=== PATIENT | female | born 1930 | race Caucasian/White ===

== ENCOUNTER 2017-01-08 11:07 | Emergency (ER) | payer OTHER ==
[~2017-01-08] VITALS: Ht 165.1 cm; Wt 58.1 kg
[~2017-01-08 11:07] MED LIST: ADVAIR 250/501 DISK IH; AMBIEN5 MG PO; ANTARA130 MG PO; ASPIR 8181 M1 PO; ASPIRIN81 M1 PO; ATENOLOL100 MG PO; CELECOXIB200 MG PO; CELEXA10 MG PO; CELEXA20 MG PO; CHILDREN'S ASPI81 M1 PO; CIPRO; CITALOPRAM HBR10 MG PO; COLACE100 MG PO; CYANOCOBALAM1000 MCG PO; DESYREL100 MG PO; DESYREL12.5 MG PO; DETROL LA4 MG PO; DOCUSATE SODIU100 MG PO; DUONEB 2.5-0.5 M3 ML AEROSOL; FEOSOL325 MG PO; FOSAMAX70 MG PO; FUROSEMIDE20 MG PO; HYDROCODON-ACE1 EAC7 PO; KEFLEX250 MG PO; LASIX20 MG PO; LEVOFLOXACIN500 MG PO; LEVOTHROID88 MCG PO; LEVOTHYROXINE125 MCG PO; LEVOTHYROXINE150 MCG PO; LEVOTHYROXINE88 MCG PO; LISINOPRIL20 MG PO; LOVENOX40 MG/0.4 SC; Lovenox SC; NORVASC10 MG PO; NORVASC5 MG PO; PANTOPRAZOLE SO40 MG PO; PREDNISONE20 MG PO; Percocet 5/325,Endoc PO; REMERON15 M2 PO; SPIRIVA1 INHALATI IH; ST. JOSEPH ASPI81 MG PO; SYNTHROID175 MCG PO; TENORMIN100 MG PO; TENORMIN50 MG PO; TRAZODONE HCL50 MG PO; TYLENOL REGULA325 MG PO; VITAMIN D1000 UNIT PO; VITAMIN D5000 UNIT PO; Vitamin D, Drisdol PO; ZETIA10 MG PO; Zetia PO; aspirin PO
[2017-01-08 12:03] LABS: ADD MIUA? YES; BILIRUBIN NEGATIVE; BLOOD SMALL; COLOR YELLOW ((YELLOW)); GLUCOSE (STRIP) NEGATIVE; KETONES NEGATIVE; LEUKOCYTES NEGATIVE; NITRITE NEGATIVE; PROTEIN (STRIP) NEGATIVE; SPECIFIC GRAVITY 1.009 (1.000-1.030); UROBILINOGEN 0.2 MG/DL (0.2-1.0)
[2017-01-08 12:22] LABS: EOSINOPHIL (%) 1.4 % (0-5); EOSINOPHIL COUNT 0.1 K/uL (0-0.3); HEMATOCRIT 35.4 % (36.0-46.0); IMMATURE GRANULOCYTE (%) 0.5 % (0.0-0.7); IMMATURE GRANULOCYTE COUNT 0.1 K/uL; INSTRUMENT ABS NEUTROPHIL CT 8.3 K/uL; LYMPHOCYTE COUNT 0.6 K/uL (1.0-2.8); MCH 27.3 PG (29.0-34.0); MCHC 30.5 G/DL (30.0-36.0); MCV 89.4 FL (83-99); MONOCYTE (%) 6.4 % (3-12); MONOCYTE COUNT 0.6 K/uL (0-0.8); NEUTROPHIL (%) 85.4 % (45-76); NEUTROPHIL COUNT 8.3 K/uL (1.8-6.4); PLATELET COUNT 314 K/uL (156-360); RBC DIS.WIDTH-SD 48.9 % (39-53); RED BLOOD COUNT 3.96 M/uL (3.80-5.20); WHITE BLOOD COUNT 9.8 K/uL (4.1-10.2)
[2017-01-08 12:25] LABS: BACTERIA RARE /HPF; EPITHELIAL CELLS NONE SEEN /HPF; MUCUS NONE SEEN /LPF; RED BLOOD CELLS 0-5 /HPF (0-5); UCUL ADDED? NO; WHITE BLOOD CELLS 0-5 /HPF (0-5)
[2017-01-08 12:36] LABS: CHLORIDE 110 mEq/L (99-109); POTASSIUM 3.7 mEq/L (3.7-5.4); SODIUM 142 mEq/L (136-147)
[2017-01-08 12:39] LABS: GLUCOSE 97 mg/dL (70-99)
[2017-01-08 12:40] LABS: ANION GAP 6 MEQ/L (2-14)
[2017-01-08 12:41] LABS: TOTAL BILIRUBIN 0.8 mg/dL (0.0-1.0)
[2017-01-08 12:42] LABS: ALKALINE PHOSPHATASE 99 IU/L (3-129); GFR ESTIMATE (CALCULATED) 45 mL/min/
[2017-01-08 12:43] LABS: UREA NITROGEN (BUN) 24 mg/dL (9-23)
[2017-01-08 16:05] VITALS: BP 150/66
== END 2017-01-08 16:06 | disposition home or self-care (01) ==
LOC: EME 11:07
PROVIDERS: Physician Assistant
DX: R53.1 Weakness (principal); M25.561 Pain in right knee; J44.9 Chronic obstructive pulmonary disease, unspecified; E78.5 Hyperlipidemia, unspecified; I10 Essential (primary) hypertension; Z79.82 Long term (current) use of aspirin; Z87.891 Personal history of nicotine dependence
CPT/HCPCS: 71010; 73564; 80053; 81003; 83605; 85025; 99281; 99284

== ENCOUNTER 2017-02-05 11:51 | Inpatient (IN) | payer OTHER ==
[~2017-02-05] VITALS: Ht 160 cm; Wt 55.6 kg
[2017-02-05 14:36] LABS: MCH 26.2 PG (29.0-34.0); MCHC 30.7 G/DL (30.0-36.0); MCV 85.4 FL (83-99); MEAN PLAT.VOLUME 10.3 uM^3 (9.5-12.4); PLATELET COUNT 319 K/uL (156-360); RBC DIS.WIDTH-CV 16.2 % (11.8-14.6); RBC DIS.WIDTH-SD 51.4 % (39-53); RED BLOOD COUNT 3.28 M/uL (3.80-5.20); WHITE BLOOD COUNT 10.1 K/uL (4.1-10.2)
[2017-02-05 14:54] LABS: TROP-I INTERPRETATION NEGATIVE; TROPONIN-I 0.02 ng/mL (0.0-0.30)
[2017-02-05 14:56] LABS: ANION GAP 8 MEQ/L (2-14); CHLORIDE 107 MEQ/L (99-109); SAMPLE HEMOLYSIS CHECK 2; SAMPLE ICTERIC CHECK 0; SAMPLE LIPEMIA CHECK 0; SODIUM 139 MEQ/L (136-147)
[2017-02-05 15:00] LABS: INTER. NORMALIZED RATIO 1.2; PROTHROMBIN TIME 13.5 SEC (10.2-12.9)
[2017-02-05 15:02] LABS: GFR ESTIMATE (CALCULATED) 50 mL/min/; GLUCOSE 85 mg/dL (70-99); UREA NITROGEN (BUN) 22 mg/dL (9-23)
[2017-02-05 15:03] LABS: PTT 30.9 SEC (25-37)
[2017-02-05 17:07] LABS: ADD MIUA? YES; BILIRUBIN NEGATIVE; BLOOD SMALL; COLOR YELLOW ((YELLOW)); GLUCOSE (STRIP) NEGATIVE; KETONES NEGATIVE; LEUKOCYTES NEGATIVE; NITRITE NEGATIVE; PROTEIN (STRIP) NEGATIVE; SPECIFIC GRAVITY 1.009 (1.000-1.030); UROBILINOGEN 0.2 MG/DL (0.2-1.0)
[2017-02-05 17:15] LABS: BACTERIA NONE SEEN /HPF; EPITHELIAL CELLS RARE /HPF; HYALINE CASTS 0-5 /LPF; MUCUS NONE SEEN /LPF; RED BLOOD CELLS 0-5 /HPF (0-5); UCUL ADDED? NO; WHITE BLOOD CELLS 0-5 /HPF (0-5)
[2017-02-05] MEDS ORDERED: DONEPEZIL HCL5 MG PO (17:23)
[2017-02-05] MEDS ORDERED: MYRBETRIQ25 MG PO (17:24)
[2017-02-05] MEDS ORDERED: MEMANTINE HCL5 MG PO (17:24)
[2017-02-05] MEDS ORDERED: SSD25GM TP (17:24)
[2017-02-05 18:20] VITALS: BP 121/58
[2017-02-05 20:30] VITALS: BP 102/53
[2017-02-06 00:04] VITALS: BP 94/55
[2017-02-06 01:33] LABS: METH RESISTANT S AUREUS PCR POSITIVE (NEGATIVE)
[2017-02-06 01:35] LABS: PROBE CHECK PASS
[2017-02-06 04:14] VITALS: BP 127/61
[2017-02-06 05:31] LABS: HEMATOCRIT 25.5 % (36.0-46.0); MCH 27.3 PG (29.0-34.0); MCHC 31.8 G/DL (30.0-36.0); MCV 85.9 FL (83-99); MEAN PLAT.VOLUME 10.1 uM^3 (9.5-12.4); PLATELET COUNT 284 K/uL (156-360); RBC DIS.WIDTH-CV 16.2 % (11.8-14.6); RBC DIS.WIDTH-SD 50.8 % (39-53); RED BLOOD COUNT 2.97 M/uL (3.80-5.20); WHITE BLOOD COUNT 8.7 K/uL (4.1-10.2)
[2017-02-06 05:38] LABS: ANION GAP 7 MEQ/L (2-14); CHLORIDE 107 MEQ/L (99-109); GFR ESTIMATE (CALCULATED) > 59 mL/min/; GLUCOSE 122 mg/dL (70-99); SAMPLE HEMOLYSIS CHECK 0; SAMPLE ICTERIC CHECK 0; SAMPLE LIPEMIA CHECK 0; SODIUM 139 MEQ/L (136-147); UREA NITROGEN (BUN) 16 mg/dL (9-23)
[2017-02-06 05:48] LABS: POTASSIUM 3.7 MEQ/L (3.7-5.4)
[2017-02-06 07:31] VITALS: BP 120/57
[2017-02-06 16:13] VITALS: BP 131/68
[2017-02-06 19:00] VITALS: BP 127/60
[2017-02-06 23:26] VITALS: BP 113/52
[2017-02-07 04:18] VITALS: BP 119/68
[2017-02-07 06:13] LABS: HEMATOCRIT 24.2 % (36.0-46.0); MCH 27.1 PG (29.0-34.0); MCHC 31.4 G/DL (30.0-36.0); MCV 86.4 FL (83-99); MEAN PLAT.VOLUME 9.9 uM^3 (9.5-12.4); PLATELET COUNT 277 K/uL (156-360); RBC DIS.WIDTH-SD 49.9 % (39-53); WHITE BLOOD COUNT 5.7 K/uL (4.1-10.2)
[2017-02-07 06:35] LABS: ANION GAP 8 MEQ/L (2-14); CHLORIDE 112 MEQ/L (99-109); GFR ESTIMATE (CALCULATED) 56 mL/min/; GLUCOSE 95 mg/dL (70-99); POTASSIUM 3.6 MEQ/L (3.7-5.4); SAMPLE HEMOLYSIS CHECK 0; SAMPLE ICTERIC CHECK 0; SAMPLE LIPEMIA CHECK 0; SODIUM 144 MEQ/L (136-147); UREA NITROGEN (BUN) 14 mg/dL (9-23)
[2017-02-07 07:57] VITALS: BP 123/71
[2017-02-07 12:12] VITALS: BP 120/70
[2017-02-07 15:13] VITALS: BP 172/81
[2017-02-07 17:28] VITALS: BP 133/60
[2017-02-07 23:49] VITALS: BP 131/74
[2017-02-08 00:47] VITALS: BP 127/68
[2017-02-08 01:47] VITALS: BP 130/95
[2017-02-08 02:47] VITALS: BP 130/85
[2017-02-08 06:24] LABS: EOSINOPHIL (%) 2.1 % (0-5); EOSINOPHIL COUNT 0.1 K/uL (0-0.3); HEMATOCRIT 27.2 % (36.0-46.0); IMMATURE GRANULOCYTE (%) 0.5 % (0.0-0.7); INSTRUMENT ABS NEUTROPHIL CT 5.1 K/uL; LYMPHOCYTE COUNT 0.6 K/uL (1.0-2.8); MCH 26.2 PG (29.0-34.0); MCHC 31.3 G/DL (30.0-36.0); MCV 83.7 FL (83-99); MEAN PLAT.VOLUME 10.1 uM^3 (9.5-12.4); MONOCYTE COUNT 0.4 K/uL (0-0.8); NEUTROPHIL (%) 81.2 % (45-76); NEUTROPHIL COUNT 5.1 K/uL (1.8-6.4); PLATELET COUNT 300 K/uL (156-360); RBC DIS.WIDTH-CV 15.9 % (11.8-14.6); RBC DIS.WIDTH-SD 48.5 % (39-53); RED BLOOD COUNT 3.25 M/uL (3.80-5.20); WHITE BLOOD COUNT 6.3 K/uL (4.1-10.2)
[2017-02-08 06:50] LABS: ANION GAP 5 MEQ/L (2-14); CHLORIDE 110 MEQ/L (99-109); GFR ESTIMATE (CALCULATED) > 59 mL/min/; GLUCOSE 90 mg/dL (70-99); POTASSIUM 3.5 MEQ/L (3.7-5.4); SAMPLE HEMOLYSIS CHECK 0; SAMPLE ICTERIC CHECK 0; SAMPLE LIPEMIA CHECK 0; SODIUM 140 MEQ/L (136-147); UREA NITROGEN (BUN) 9 mg/dL (9-23)
[2017-02-08 08:03] VITALS: BP 111/66
[2017-02-08 17:48] VITALS: BP 146/79
[2017-02-08 23:15] VITALS: BP 117/62
[2017-02-09 06:42] LABS: EOSINOPHIL (%) 2.5 % (0-5); EOSINOPHIL COUNT 0.1 K/uL (0-0.3); HEMATOCRIT 27.2 % (36.0-46.0); IMMATURE GRANULOCYTE (%) 0.6 % (0.0-0.7); LYMPHOCYTE COUNT 0.3 K/uL (1.0-2.8); MCH 26.8 PG (29.0-34.0); MCHC 31.6 G/DL (30.0-36.0); MCV 84.7 FL (83-99); MEAN PLAT.VOLUME 9.6 uM^3 (9.5-12.4); MONOCYTE (%) 5.9 % (3-12); MONOCYTE COUNT 0.3 K/uL (0-0.8); NEUTROPHIL (%) 83.7 % (45-76); PLATELET COUNT 275 K/uL (156-360); RBC DIS.WIDTH-SD 49.1 % (39-53); RED BLOOD COUNT 3.21 M/uL (3.80-5.20); WHITE BLOOD COUNT 4.8 K/uL (4.1-10.2)
[2017-02-09 07:00] VITALS: BP 118/69
[2017-02-09 16:10] VITALS: BP 121/69
[2017-02-09] MEDS ORDERED: PROTONIX IV40 MG IV (16:19)
[2017-02-09] MEDS ORDERED: FERATE240 M1 PO (16:20)
== END 2017-02-09 19:01 | DRG 812 ==
LOC: EME 11:51 → 5EAST 16:30 → 5WEST 16:30 → EDOF 16:30 → ENRESERV 16:51 → 5WEST 18:13 → ENRESERV 02-06 17:58 → 5EAST 02-07 17:08
PROVIDERS: Emergency Medicine; Family Medicine; Internal Medicine Gastroenterology
PROC: 0HQ0XZZ Repair Scalp Skin, External Approach (ICD-10-PCS; principal; 2017-02-05)
PROC: 0DB68ZX Excision of Stomach, Via Natural or Artificial Opening Endoscopic, Diagnostic (ICD-10-PCS; 2017-02-07)
PROC: 0DJD8ZZ Inspection of Lower Intestinal Tract, Via Natural or Artificial Opening Endoscopic (ICD-10-PCS; 2017-02-08)
DX: D64.9 Anemia, unspecified (principal); I95.9 Hypotension, unspecified; J44.9 Chronic obstructive pulmonary disease, unspecified; N39.0 Urinary tract infection, site not specified; K92.2 Gastrointestinal hemorrhage, unspecified; R13.10 Dysphagia, unspecified; G30.9 Alzheimer's disease, unspecified; T18.198A Other foreign object in esophagus causing other injury, initial encounter; F02.80 Dementia in other diseases classified elsewhere, unspecified severity, without behavioral disturbance, psychotic disturbance, mood disturbance, and anxiety; Z51.5 Encounter for palliative care; Z66 Do not resuscitate; R63.0 Anorexia; R71.0 Precipitous drop in hematocrit; R29.6 Repeated falls; N39.3 Stress incontinence (female) (male); K80.20 Calculus of gallbladder without cholecystitis without obstruction; I25.10 Atherosclerotic heart disease of native coronary artery without angina pectoris; E78.5 Hyperlipidemia, unspecified; E03.9 Hypothyroidism, unspecified; M81.0 Age-related osteoporosis without current pathological fracture; Z85.820 Personal history of malignant melanoma of skin; E86.0 Dehydration; N81.10 Cystocele, unspecified; Z91.19 Patient's noncompliance with other medical treatment and regimen; Z96.641 Presence of right artificial hip joint; Z87.440 Personal history of urinary (tract) infections; M19.90 Unspecified osteoarthritis, unspecified site; N18.9 Chronic kidney disease, unspecified; M17.0 Bilateral primary osteoarthritis of knee; Z87.891 Personal history of nicotine dependence; K21.9 Gastro-esophageal reflux disease without esophagitis; I12.9 Hypertensive chronic kidney disease with stage 1 through stage 4 chronic kidney disease, or unspecified chronic kidney disease; K44.9 Diaphragmatic hernia without obstruction or gangrene; K31.7 Polyp of stomach and duodenum; K29.70 Gastritis, unspecified, without bleeding; K57.30 Diverticulosis of large intestine without perforation or abscess without bleeding; F41.0 Panic disorder [episodic paroxysmal anxiety]; S01.01XA Laceration without foreign body of scalp, initial encounter; F32.9 Major depressive disorder, single episode, unspecified; S50.812A Abrasion of left forearm, initial encounter; Z79.83 Long term (current) use of bisphosphonates; Z79.899 Other long term (current) drug therapy; Z82.49 Family history of ischemic heart disease and other diseases of the circulatory system; Z86.79 Personal history of other diseases of the circulatory system; Z91.81 History of falling; M79.604 Pain in right leg; R55 Syncope and collapse; J98.8 Other specified respiratory disorders; Z68.21 Body mass index [BMI] 21.0-21.9, adult
CPT/HCPCS: 70450; 71020; 73502; 73552; 73590; 74000; 74176; 74230; 80048; 80069; 81003; 83605; 84484; 85025; 85027; 85610; 85730; 86900; 86901; 86920; 87641; 88305; 88342 TC; 92611 GN; 93005; 94640; 94640 76; 94799; 99281; 99285; C9113; J7030; P9016

== ENCOUNTER → 2017-03-01 | Outpatient (CLI) | payer OTHER ==
[~2017-03-01] MED LIST changes: +DONEPEZIL HCL5 MG PO; +FERATE240 M1 PO; +MEMANTINE HCL5 MG PO; +MYRBETRIQ25 MG PO; +PROTONIX IV40 MG IV; +SSD25GM TP
== END ==
LOC: RAD 09:00
DX: R13.13 Dysphagia, pharyngeal phase (principal); R13.11 Dysphagia, oral phase; R09.89 Other specified symptoms and signs involving the circulatory and respiratory systems; J98.8 Other specified respiratory disorders
CPT/HCPCS: 74230; 92611 GN; G8996 GN CL; G8997 GN CL; G8998 GN CL